=== PATIENT | male | born 1985 | race Caucasian/White ===

== ENCOUNTER 2017-08-21 08:27 | Emergency (ER) | payer OTHER ==
[2017-08-21 08:44] VITALS: BP 152/94
[2017-08-21] MEDS ORDERED: Cyclobenzaprine TAB* 10 MG PO ONE (08:56)
[2017-08-21] MEDS ORDERED: HYDROcodone/ACETAMIN 5-325 MG* 1 TAB PO ONE (08:56)
--- NOTE | 2017-08-21 09:00 | UC ---
Back Pain HPI - HPI Summary HPI Summary: back pain and spasm began last night for no apparent reason, has had similar in the past treated successfully with chiropractic treatment - History of Current Complaint Chief Complaint: UCBackPain Stated Complaint: BACK PAIN Time Seen by Provider: 08/21/17 08:44 Hx Obtained From: Patient Onset/Duration: Sudden Onset, Lasting Days - 1, Still Present Timing: Constant Severity Initially: Severe Severity Currently: Severe Pain Intensity: 8 Pain Scale Used: 0-10 Numeric Back Pain: Is Discrete @ - lumabar sacral area L>R Character: Aching, Spasmodic, Stiffness Alleviating Factor(s): Nothing Associated Signs And Symptoms: Negative: Weakness, Numbness, Tingling, Bladder Incontinence, Bowel Incontinence - Allergies/Home Medications Allergies/Adverse Reactions: Allergies Allergy/AdvReac Type Severity Reaction Status Date / Time bee venom protein (honey bee) Allergy Hives Verified 08/21/17 08:40 PMH/Surg Hx/FS Hx/Imm Hx Previously Healthy: Yes - Surgical History Surgical History: None - Family History Known Family History: Positive: None - Social History Occupation: Employed Full-time Lives: With Family Alcohol Use: Occasionally Substance Use Type: None Smoking Status (MU): Never Smoked Tobacco - Immunization History Most Recent Influenza Vaccination: 06/2013 Review of Systems Constitutional: Negative Skin: Negative Eyes: Negative ENT: Negative Respiratory: Negative Cardiovascular: Negative Gastrointestinal: Negative Genitourinary: Negative Motor: Negative Neurovascular: Negative Musculoskeletal: Arthralgia - lumbar/sacral spine, Myalgia - lower back L>R Neurological: Negative Psychological: Negative Is Patient Immunocompromised?: No All Other Systems Reviewed And Are Negative: Yes Physical Exam Triage Information Reviewed: Yes Appearance: Well-Appearing, Pain Distress, Obese Vital Signs: Initial Vital Signs Temp 98.9 F 08/21/17 08:37 Pulse 91 08/21/17 08:37 Resp 18 08/21/17 08:37 BP 152/94 08/21/17 08:37 Pulse Ox 96 08/21/17 08:37 Vital Signs Reviewed: Yes Eye Exam: Normal Eyes: Positive: Conjunctiva Clear ENT Exam: Normal ENT: Positive: Normal ENT inspection, Hearing grossly normal, Nasal congestion. Negative: Nasal drainage, Trismus, Muffled voice, Hoarse voice, Dental tenderness Dental Exam: Normal Neck exam: Normal Neck: Positive: Supple, Nontender Respiratory Exam: Normal Respiratory: Positive: Chest non-tender, No respiratory distress, No accessory muscle use Cardiovascular Exam: Normal Cardiovascular: Positive: RRR, Pulses Normal, Brisk Capillary Refill Abdomen Description: Negative: CVA Tenderness (R), CVA Tenderness (L) Musculoskeletal Exam: Normal Musculoskeletal: Positive: Strength Intact, No Edema, ROM Limited @ - lumbar spine Neurological Exam: Normal Neurological: Positive: Alert, Muscle Tone Normal Psychological Exam: Normal Skin Exam: Normal Diagnostics - Radiology No standard instances Xray Interpretation: No Acute Changes Radiology Interpretation Completed By: Radiologist Re-Evaluation - Re-Evaluation First Eval Change: Improved - Begining to fell better Back Pain Course/Dx - Course Course Of Treatment: NSAID, FLexeril, Gentle Exercise Follow BP with PCP - Differential Dx/Diagnosis Provider Diagnoses: Low back Muscle spasm Discharge - Discharge Plan Condition: Stable Disposition: HOME Prescriptions: Cyclobenzaprine TAB* [Flexeril 10 MG TAB*] 10 mg PO TID PRN #20 tab PRN Reason: muscle spasm/tightness Naproxen [Naprosyn] 500 mg PO BID PRN #40 tablet PRN Reason: pain Patient Education Materials: Low Back Strain (ED), Hypertension (ED), Lower Back Exercises (ED) Forms: *Work Release Referrals: [facility] [place] [facility] [Outside] - 2 Weeks
--- NOTE | 2017-08-21 09:42 | RAD ---
INDICATION: Low back and bilateral groin pain x2 days COMPARISON: None. TECHNIQUE: 5 views of the lumbar spine were obtained. FINDINGS: The vertebra are in normal alignment. No fracture is seen. Disc spaces appear maintained. IMPRESSION: No evidence of fracture or subluxation.
== END 2017-08-21 10:06 | disposition home or self-care (01) ==
LOC: UCCORT 08:27
DX: M62.830 Muscle spasm of back (principal); Z72.89 Other problems related to lifestyle
CPT/HCPCS: 72110; 81003; 99212; A9270-GY; G0463